=== PATIENT | male | born 1935 | race Caucasian/White ===

== ENCOUNTER 2016-09-14 10:46 | Emergency (ER) | payer MEDICARE ==
--- NOTE | 2016-09-14 11:13 | ERNOTE ---
Lower Extremity HPI - Narrative Date of Service: 09/14/16 - General Lower Extremities Pain: knee: left Time Seen by Provider: 09/14/16 11:00 Source: patient Exam Limitations: no limitations - Immun/Allergies/Home Medications Immunizations: IMMUNIZATION HX Immunizations Up to Date No History of Influenza Vaccine No Hx Pneumococcal Vaccination Yes Allergies/Adverse Reactions: Allergies Allergy/AdvReac Type Severity Reaction Status Date / Time No Known Allergies Allergy Verified 09/14/16 10:54 Home Medications: HOME MEDICATIONS Metoprolol Succinate [Toprol Xl] 25 mg PO DAILY 08/13/13 [Last Taken Unknown] Omega3/Dha/Epa/Fish Oil/Vit D3 [Fish Oil + Vitamin D-3 Softgel] 1 each PO DAILY 08/13/13 [Last Taken Unknown] Tramadol HCl [Ultram] 50 mg PO Q6H PRN 08/13/13 [Last Taken Unknown] Rivaroxaban [Xarelto] 20 mg PO DAILY 06/04/15 [Last Taken Unknown] Calcium Carb&Cit/Mag12/Vit D3 [Calcium 500 mg Tablet] 1 each PO DAILY 02/04/16 [ Last Taken Unknown] Cyanocobalamin (Vitamin B-12) [Vitamin B-12] 500 mcg PO DAILY 02/04/16 [Last Taken Unknown] Furosemide [Lasix] 20 mg PO DAILY 02/04/16 [Last Taken Unknown] Gabapentin 600 mg PO HS 02/04/16 [Last Taken Unknown] Lisinopril [Prinivil] 10 mg PO DAILY 02/04/16 [Last Taken Unknown] Magnesium 250 mg PO TID 02/04/16 [Last Taken Unknown] Tadalafil [Cialis] 5 mg PO DAILY 02/04/16 [Last Taken Unknown] traMADol HCL [Ultram] 50 mg PO QID PRN #20 tab 09/14/16 [Last Taken Unknown] - History of Present Illness Narrative: Pt. comes in with c/o L knee pain that started five days ago after he hit his lower leg on the car door. Pt. reports pain as aching except when he attempts to bear weight on his leg with it straight. Pt. denies any numbness, tingling, CP, SOB, decreased ROM, but does state that he has had to use a cane to support this knee. 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 Review of Systems - Review of Systems Constitutional: Present: no symptoms reported. Absent: fever, chills, weakness , fatigue, malaise EYE: Present: no symptoms reported ENT: Present: no symptoms reported. Absent: nose pain, nose congestion, nasal drainage, sore throat Respiratory: Present: no symptoms reported. Absent: shortness of breath, cough , wheezing Cardiology: Present: no symptoms reported. Absent: chest pain, palpitations, edema Gastrointestinal/Abdominal: Present: no symptoms reported. Absent: nausea, vomiting, diarrhea, abdominal pain Genitourinary: Present: no symptoms reported. Absent: frequency, pain, dysuria Musculoskeletal: Present: joint pain - L lateral knee. Absent: back pain Skin: Present: no symptoms reported Neurological: Present: no symptoms reported. Absent: headache, dizziness/light- headedness, numbness, tingling All Other Systems: All systems neg except as marked - Patient's Past Medical History Patient History - Medical: Chronic Pain, Other Patient History - Cardiac/Respiratory: Atrial Fibrillation Patient History - Cancer: No Hx of Cancer Patient History - Surgical Procedures: Cholecystectomy, Other - Social History Does anyone smoke in the home?: No Smoking Status: Never smoker Have you smoked in the past 12 months: No - Immunizations Immunizations Up to Date: No Hx Pneumococcal Vaccination: Yes History of Influenza Vaccine: No Physical Exam - Physical Exam General Appearance: Present: wd/wn, alert, no apparent distress Eye Exam: Normal inspection: bilateral, PERRL: bilateral, EOMI: bilateral Ears, Nose, Throat: Present: normal ENT inspection, hearing grossly normal, normal pharynx Neck: Present: normal inspection, nontender. Absent: lymphadenopathy (R), lymphadenopathy (L) Respiratory: Present: no respiratory distress, normal breath sounds, no accessory muscle use, chest nontender, lungs clear Cardiovascular/Chest: Present: regular rate, rhythm, no murmur, normal peripheral pulses Gastrointestinal/Abdominal: Present: normal bowel sounds, nontender, nondistended, soft Back Exam: Present: normal inspection, normal range of motion, no CVA tenderness , no vertebral tenderness Extremity Exam: Present: joint swelling - L knee mild, other - L ateral L knee tenderness ant point tenderness L medial patellar tendon. Absent: joint redness Neurological Exam: Present: alert, oriented, normal mood/affect, no motor/ sensory deficits Skin Exam: Present: normal color, warm/dry. Absent: pallor, skin rash ED Progress - Results and Orders Patient's Lab Results:: I have reviewed the patient's lab results. - Vital Signs Patient's Vital Signs:: I have reviewed the patient's vital signs. Vital Signs: Vital Signs 09/14/16 10:51 Temperature 35.1 C L Pulse Rate 56 L Respiratory 16 Rate Blood Pressure 123/78 O2 Sat by Pulse 97 Oximetry - X-Ray X-Ray #1 X-Ray: knee Interpretation: Reviewed by me X-ray Comments: degenerative changes no acute. 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
[2016-09-14 11:19] LABS: Hematocrit 39.1 % (42.0-52.0); Hemoglobin 12.3 gm/dL (13.5-18.0); Mean Cell Volume 91.6 fl (78-100); Mean Corpuscular Hemoglobin 28.8 pg (27-31); Mean Corpuscular Hgb Conc 31.5 g/dl (32-36); Mean Platelet Volume 11.7 fl (6.0-9.5); Neutrophil # 5.2 K/mm3 (1.3-6.0); Neutrophil % 69.7 % (42-75.0); Platelet Count 159 K/mm3 (150-450); Red Blood Count 4.27 M/mm3 (4.7-6.0); Red Cell Distribution Width 16.9 % (11.5-14.0); White Blood Count 7.5 K/mm3 (4.0-10.5)
[2016-09-14 11:29] LABS: Prothrombin Time (Patient) 14.3 Seconds (9.4-11.4)
[2016-09-14 11:32] LABS: Albumin * 2.9 gm/dl (3.4-5.0); Anion Gap 8.5 mmol/L (6.8-13.8); BUN/Creatinine Ratio 18.4 (9.0-21.6); Bilirubin, Total 0.8 mg/dL (0.0-1.1); Calcium * 8.4 mg/dL (7.9-10.9); Carbon Dioxide 29.4 mmol/L (24-32.6); INR 1.38 INR (0.90-1.10); Potassium 3.9 mmol/L (3.4-4.6); Total Protein 6.4 gm/dL (6.2-8.2); Uric Acid 4.1 mg/dL (2.6-7.2)
[2016-09-14 13:27] VITALS: BP 126/64
== END 2016-09-14 12:12 | disposition home or self-care (01) ==
LOC: ER 10:46
DX: M17.5 Other unilateral secondary osteoarthritis of knee (principal); Z90.49 Acquired absence of other specified parts of digestive tract; I48.91 Unspecified atrial fibrillation; Z79.01 Long term (current) use of anticoagulants

== ENCOUNTER 2016-10-12 12:46 | Emergency (ER) | payer MEDICARE ==
[2016-10-12 12:55] VITALS: BP 142/69
[2016-10-12 13:44] LABS: Urine Bilirubin 3 mg/dl (NEGATIVE); Urine Blood 250 /ul (NEGATIVE); Urine Ketone 5 mg/dL (NEGATIVE); Urine Protein >=300 mg/dL (NEGATIVE); Urine Specific Gravity >=1.030 SP.GR. (1.005-1.030); Urine Urobilinogen Normal (NORMAL); Urine pH 6.5 pH (5.0-7.0)
[2016-10-12 13:46] LABS: Urine Nitrite Positive (NEGATIVE)
[2016-10-12 13:47] LABS: Urine Appearance Cloudy; Urine Bacteria 1+; Urine Color Yellow; Urine RBC >50 /hpf (0-5); Urine WBC >50 /hpf (0-5)
[2016-10-12 14:10] LABS: Hematocrit 37.4 % (42.0-52.0); Hemoglobin 12.3 gm/dL (13.5-18.0); Mean Cell Volume 89.9 fl (78-100); Mean Corpuscular Hemoglobin 29.6 pg (27-31); Mean Corpuscular Hgb Conc 32.9 g/dl (32-36); Neutrophil # 13.6 K/mm3 (1.3-6.0); Platelet Count 138 K/mm3 (150-450); Red Blood Count 4.16 M/mm3 (4.7-6.0); Red Cell Distribution Width 17.3 % (11.5-14.0); White Blood Count 15.8 K/mm3 (4.0-10.5)
[2016-10-12 14:16] LABS: Albumin * 2.6 gm/dl (3.4-5.0); Anion Gap 13.5 mmol/L (6.8-13.8); BUN/Creatinine Ratio 10.9 (9.0-21.6); Bilirubin, Total 1.2 mg/dL (0.0-1.1); Ca. Corrected For Albumin 8.8 mg/dL (8.4-10.2); Carbon Dioxide 24.4 mmol/L (24-32.6); Potassium 3.9 mmol/L (3.4-4.6); Total Protein 5.9 gm/dL (6.2-8.2)
--- NOTE | 2016-10-12 15:12 | ERNOTE ---
ER Male HPI Stated Complaint: PEEING BLOOD ER Male: dysuria Time Seen by Provider: 10/12/16 13:30 Source: patient Exam Limitations: no limitations Immunizations: IMMUNIZATION HX Immunizations Up to Date No History of Influenza Vaccine No Hx Pneumococcal Vaccination Yes Allergies/Adverse Reactions: Allergies No Known Allergies Allergy (Verified 10/12/16 12:55) Home Medications: HOME MEDICATIONS Metoprolol Succinate [Toprol Xl] 25 mg PO DAILY 08/13/13 [Last Taken Unknown] Omega3/Dha/Epa/Fish Oil/Vit D3 [Fish Oil + Vitamin D-3 Softgel] 1 each PO DAILY 08/13/13 [Last Taken Unknown] Tramadol HCl [Ultram] 50 mg PO Q6H PRN 08/13/13 [Last Taken Unknown] Rivaroxaban [Xarelto] 20 mg PO DAILY 06/04/15 [Last Taken Unknown] Calcium Carb&Cit/Mag12/Vit D3 [Calcium 500 mg Tablet] 1 each PO DAILY 02/04/16 [ Last Taken Unknown] Cyanocobalamin (Vitamin B-12) [Vitamin B-12] 500 mcg PO DAILY 02/04/16 [Last Taken Unknown] Furosemide [Lasix] 20 mg PO DAILY 02/04/16 [Last Taken Unknown] Gabapentin 600 mg PO HS 02/04/16 [Last Taken Unknown] Lisinopril [Prinivil] 10 mg PO DAILY 02/04/16 [Last Taken Unknown] Magnesium 250 mg PO TID 02/04/16 [Last Taken Unknown] Tadalafil [Cialis] 5 mg PO DAILY 02/04/16 [Last Taken Unknown] Ciprofloxacin HCl [Cipro] 500 mg PO BID #42 tablet 10/12/16 [Last Taken Unknown] - History of Present Illness Timing: Present: getting worse Quality: Present: moderate, aching Onset Location: Present: right flank, left flank Radiation: Present: none Activities at Onset: Present: none Prior Abdominal Problems: Present: none Associated Symptoms: Present: fever/chills, urinary frequency, polyuria, loss of bladder control, low back pain Review of Systems - Narrative Narrative: Patient presented to ER with c/o urinary frequency, low back pain and dark/ bloody urine. - Review of Systems Constitutional: Present: no symptoms reported EYE: Present: no symptoms reported ENT: Present: no symptoms reported Respiratory: Present: no symptoms reported Cardiology: Present: no symptoms reported Gastrointestinal/Abdominal: Present: no symptoms reported Genitourinary: Present: See HPI, frequency, pain, dysuria, hematuria, decreased urinary output Musculoskeletal: Present: back pain - low back pain that started 2 days ago - Patient's Past Medical History Patient History - Medical: Chronic Pain, UTI'S, Other Patient History - Cardiac/Respiratory: Atrial Fibrillation, Hypertension Patient History - Cancer: No Hx of Cancer Patient History - Surgical Procedures: Cholecystectomy, Other - Social History Does anyone smoke in the home?: No - Immunizations Immunizations Up to Date: No Hx Pneumococcal Vaccination: Yes History of Influenza Vaccine: No Physical Exam - Physical Exam General Appearance: Present: wd/wn, alert, no apparent distress Eye Exam: Normal inspection: bilateral Ears, Nose, Throat: Present: normal ENT inspection Neck: Present: normal inspection Respiratory: Present: no respiratory distress Cardiovascular/Chest: Present: normal peripheral pulses, irregularly irregular - hx of afib Peripheral Pulses: N=norm/S=strong/W=weak/B=bound/A=absent: Radial (R): Normal, Radial (L): Normal Gastrointestinal/Abdominal: Present: normal bowel sounds, nontender, nondistended Back Exam: Present: CVA tenderness (R), CVA tenderness (L) Extremity Exam: Present: normal inspection, non-tender, normal range of motion Neurological Exam: Present: alert, oriented, normal mood/affect Skin Exam: Present: normal color Lymphatic Exam: Present: no adenopathy ED Progress - Results and Orders Patient's Lab Results:: I have reviewed the patient's lab results. - Vital Signs Patient's Vital Signs:: I have reviewed the patient's vital signs. Vital Signs: Vital Signs 10/12/16 12:51 Temperature 36.4 C L Pulse Rate 79 Respiratory 14 Rate Blood Pressure 142/69 O2 Sat by Pulse 96 Oximetry - Progress/Reassessment Chief Complaint: Genitourinary Problem Progress:: Improved Plan - Plan Plan: Patient is to continue his home medications and written prescription. Continue to drink plenty of fluids. Departure Clinical Impression: Urinary tract infection - Departure Disposition: Home self-care Condition: Good Instructions: Urinary Tract Infection, Adult, [id number] Additional Instructions: Start your oral antibiotics today. Continue current home medications, encourage fluids. Please return if symptoms continue or worsen. Follow up with primary care doctor for urine check after antibiotics are completed. Referrals: Qian Davila, PAYAL [Primary Care Provider] - Prescriptions: Ciprofloxacin HCl [Cipro] 500 mg PO BID #42 tablet
--- OUTSIDE RECORDS SUMMARY | 2016-10-12 16:27 | XMS REPORT | Continuity of Care Document ---
:1935 Author Organization [facility] ([facility] [place]) Address [address] [place] [address] Phone [phone] Care Team Providers Name Role Phone EffieCely cisnerosgy Primary Care Provider [phone] Source Comments This disclosure is being made pursuant to the Care Everywhere program, applicable federal and state laws, and may not contain all informaitonavailable regarding this patient.[facility] ([facility] [place]) Active Allergies and Adverse Reactions Allergen Noted Date Severity Reactions Comments Acetaminophen 05/19/2016 Nausea & Vomiting Current Medications Prescription Sig. Disp. Refills Start Date End Date Status lisinopril 10 mg tablet Take 10 mg by Active mouth daily metoPROLol succinate 25 mg Take 25 mg by Active XL tablet mouth daily OMEGA3/DHA/EPA/FISH Active OIL/VIT D3 (FISH OIL-VIT D3 PO) traMADol 50 mg tablet Take 100 mg by Active mouth 2 times daily as needed cyanocobalamin (NASCOBAL) Use 500 mcg into Active 500 mcg nasal spray one nostril every week CIALIS 5 mg tablet Take 5 mg by 10/21/2015 Active mouth. XARELTO 20 mg tablet Take 20 mg by 10/25/2015 Active mouth daily. NEURONTIN 300 mg capsule 600 mg every 10/21/2015 Active evening. diphenoxylate-atropine Take 1 tablet by Active 2.5-0.025 mg per tablet mouth 4 times daily as needed. furosemide 20 mg tablet Take 20 mg by Active mouth as needed. 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 05/20/2016 Chronic atrial fibrillation 03/04/2015 Morbid obesity 03/04/2015 Cardiomyopathy in other diseases classified elsewhere 03/04/2015 SHALINI (obstructive sleep apnea) 03/04/2015 Extreme obesity 02/26/2014 Most Recent Encounters Date Type Specialty Providers Description 09/22/2016 Office Visit [facility] Ophthalmology Jimy Herron MD Chief Comp : Patient Reported Reason For Visit 09/14/2016 Telephone [facility] Ophthalmology Jimy Herron MD Chief Comp: Appointment Info 08/31/2016 Office Visit Heart and Vascular Jonathan Cowart MD Dx: Chronic atrial fibrillation (Primary Dx) Social History Tobacco Use Types Packs/Day Years Used Date Never Smoker Alcohol Use Drinks/Week oz/Week Comments No Last Filed Vital Signs Vital Sign Reading Time Taken Blood Pressure 128/84 08/31/2016 2:55 PM EXPORT COORDINATOR Pulse 60 08/31/2016 2:55 PM EXPORT COORDINATOR Temperature 36.4 C (97.5 F) 05/19/2016 3:24 PM CDT Respiratory Rate - - Height 1.778 m (5' 10") 08/31/2016 2:55 PM EXPORT COORDINATOR Weight 124.739 kg (275 lb) 08/31/2016 2:55 PM EXPORT COORDINATOR Body Mass Index 39.46 08/31/2016 2:55 PM EXPORT COORDINATOR Oxygen Saturation 98% 05/19/2016 3:24 PM CDT Plan of Care Date Type Specialty Providers Description 03/29/2017 Appointment Heart and Vascular Jonathan Cowart MD [address] [place] [address] [phone] (Fax) Chief Comp: Patient Rosemary Rodriguez MONICA Finney [address] [place] [address] [phone] (Fax) Reported Reason For Visit Health Maintenance Due Date Last Done Comments Hepatitis B Vaccine (1 of 3 - Primary Series) 1935 Tdap Vaccine 02/14/1946 Lipid Disorder Screening 1953 Td Vaccine 1953 Colonoscopy 1987 Zoster Vaccine 1997 Pneumococcal Vaccine (1 of 2 - PCV13) 2002 Influenza Vaccine: Seasonal (#1) 03/15/2016 Results from Last 3 Months Not on file
== END 2016-10-12 15:27 | disposition home or self-care (01) ==
LOC: ER 12:46
DX: N39.0 Urinary tract infection, site not specified (principal); I48.91 Unspecified atrial fibrillation; Z79.01 Long term (current) use of anticoagulants; I10 Essential (primary) hypertension; Z87.440 Personal history of urinary (tract) infections

== ENCOUNTER 2017-10-31 06:39 | Inpatient (IN) | payer MEDICARE ==
[~2017-10-31 06:39] MED LIST: MORPHINE SULFATE 15 MG TABLET.SA PO PRN; ROPIVACAINE HCL/PF 100 MG, KETOROLAC TROMETHAMINE 30 MG, EPINEPHrine 0.2 MG in NORMAL S... IJ PRN; TRANEXAMIC ACID 1,000 MG in NORMAL SALINE 100 ML IV PRN; ceFAZolin SODIUM 1 GM VIAL IV PRN
[2017-10-31] MEDS: RINGER'S SOLUTION,LACTATED 1,000 ML IV PRN ×2 (07:42→07:45)
[2017-10-31] MEDS ORDERED: RINGER'S SOLUTION,LACTATED 1,000 ML IV ONE (09:00)
--- NOTE | 2017-10-31 09:45 | POSTOP NO ---
Date of Surgery: 10/31/17 Patient Tolerated the Procedure: Well Post Operative Diagnosis/Procedures: Client Relationship Executive: Jun Finley PA-C Post-operative Diagnosis: Left knee degenerative joint disease Finding: Above Procedure: Left total knee arthroplasty Estimated Blood Loss: Minimal Specimens: Bone for disposal
[2017-10-31] MEDS ORDERED: ONDANSETRON HCL/PF 2 MG/ML VIAL IV PRN (09:47)
[2017-10-31] MEDS ORDERED: diphenhydrAMINE HCL 50 MG/ML VIAL IV PRN (09:47)
[2017-10-31] MEDS ORDERED: MAG HYDROX/ALUMINUM HYD/SIMETH 30 ML UDC PO PRN (09:47)
[2017-10-31] MEDS ORDERED: ZOLPIDEM TARTRATE 5 MG TABLET PO PRN (09:47)
[2017-10-31] MEDS ORDERED: PROMETHAZINE HCL 5 MG in DEXTROSE 5 % IN WATER 50 ML IV PRN ×2 (09:47)
[2017-10-31] MEDS ORDERED: MAGNESIUM HYDROXIDE 30 ML UDC PO PRN (09:47)
--- NOTE | 2017-10-31 09:47 | OR ---
Operative Report - Dictated Report Narrative: Date: 10/31/2017 Preoperative diagnosis: Left Knee degenerative joint disease. Postoperative diagnosis: Left Knee degenerative joint disease. Procedure: Left Total knee arthroplasty. Surgeon: Jose R Cisneros M.D. Stone Rigger: Jun Finley PA-C Anesthesia: General with local periarticular joint injection. Complications: None Specimens: Bone for disposal. Estimated blood loss: Minimal. Tourniquet time: 80 Minutes at 325 millimeters of mercury. Retained implants: Depuy Attune size 7 left lugged cemented posterior stabilized femoral component. Size 7 fixed-bearing cemented tibial platform. 7 by 7 millimeter posterior stabilized cross-linked tibial insert. 41 millimeter medialized patella button. Indications: Mr. Pozo is a 82-year-old gentleman who has had long standing left knee pain and arthrosis. This patient was followed in my clinic for period of time with significant complaints of left knee pain consistent with arthritic changes. He had failed conservative measures including, but not limited to, activity modification, passage of time, medications, and other conservative measures. Patient wished to proceed with surgical treatment. The risks, benefits, and alternatives were discussed in clinic. The risks of , blood clots, bleeding, infection, nerve/tendon blood vessel/ injury, malposition of components, intraoperative fracture, postoperative limited range of motion, persistent pain, failure of components, and need for additional procedures. Patient wished to proceed consent was obtained after answering all questions. Procedure: After marking the correct extremity on the floor, the patient was taken to the operating room. A timeout was performed. IV antibiotics consisting of Ancef were administered prior to the procedure. A general anesthetic was induced by anesthesia, per my request, on the operative table with all bony prominences well-padded. Cuadra catheter was placed, and a bump was placed under the operative side buttock. SCDs and CASIMIRO hose were utilized on the nonoperative leg. A well-padded tourniquet was applied to the operative thigh. The operative leg was then pre-scrubbed with ericka perez prepped, and draped in a standard sterile fashion. After exsanguinating the extremity with an Esmarch bandage, the tourniquet was inflated. After marking out the anterior knee for standard incision centered over the patella, the skin was incised and dissected down to the joint retinaculum. The joint retinaculum was marked out as well as the horizontal axis of the patella, and a standard medial parapatellar arthrotomy was then made. The most proximal aspect of the quadriceps tendon and the patella tendon insertion were protected from release. A partial synovectomy was performed as well as a resection of the infrapatellar fat pad. The distal femoral fat pad proximal to the trochlea was also resected using cautery. The soft tissues were elevated off the medial aspect of the proximal tibia using a Luna elevator ensuring that we did not transect the medial collateral ligament. Upon initial evaluation range of motion was approximately 0 degrees to 130 degrees of flexion. There were signs of advanced arthrosis in the medial and patellofemoral joint spaces. There were large marginal osteophytes which were removed with a rongeur. The knee was hyperflexed and the patella was tucked laterally. Protecting the surrounding soft tissues with Homans, an entry drill was placed down the femoral canal using Whitesides line for guidance into the entry point. The intramedullary femoral alignment juany was utilized in order to cut the distal femur in 5 degrees of valgus resecting 10 millimeters of bone. Next the distal femur was sized to a size 7. A posterior referencing guide was utilized to place the distal femoral cutting block in 3 degrees of external rotation. This was pinned into place. The rotation was confirmed both visually and based on anatomic landmarks. The 4 in 1 cutting jig of the appropriate size was utilized in order to make all bony cuts. The angle wing was used to ensure no notching. Retractors were utilized in order to protect surrounding soft tissues. This cut did not result in any excessive notching. We then cut the box centered over the distal femur. This allowed for resection of the anterior and posterior cruciate ligaments. I then turned my attention to the preparation of the tibia. Using an extra medullary tibial alignment juany, 3 millimeters of bone was resected off the medial articular surface. This was made perpendicular to the mechanical axis of the joint with the alignment juany centered over the ankle mortise. The alignment juany was checked and was noted to be parallel to the mechanical axis, centered over the medial one third of the tibial tubercle, paralleling the anterior surface of the tibia. We then turned our attention to the remaining meniscus and soft tissues. These were removed while protecting the surrounding ligaments and soft tissues. The marginal osteophytes off the anterior, posterior, medial, lateral aspects of the femur and tibia were removed. The tibia was sized out to a size 7. Next the tibia was drilled and punched in an externally rotated position. Next the trial femur and a series of tibial inserts were utilized in order to allow for full extension and maximal flexion. It was found that a 7 millimeter insert gave the best range of motion and stability at multiple flexion points as well as at full extension there was less than 2 mm of gapping both medially and laterally. There is minimal anterior translation with the knee at 90 degrees of flexion and no signs of being able to dislocate the knee. The patella was then prepared. The initial thickness was 26 millimeters. This was reamed down to 15 millimeters parallel to the anterior surface of the patella. It was sized out to a size 41 medialized patella button. This was then drilled and trialed. Without any medial restraint the patella tracked appropriately and did not sublux or dislocate. At this point, it was felt these were the appropriate sized implants, and all trials were removed. The standard periarticular joint injection consisting of ropivacaine, Toradol, and epinephrine were injected into the periarticular joint tissues. The bony surfaces were thoroughly irrigated with a pulsatile- suction saline irrigation device. A bone plug from the prior resected anterior chamfer cut was placed into the drill hole at the distal femur. The bony surfaces were then dried in preparation for placement of the implants. The cement was vacuum mixed per the diesel dinkey operator's instructions. The cement was placed on the dry bony surfaces and posterior aspect of the implants. The implants were impacted into place, removing all extruded cement. At this point anesthesia administered tranexamic acid per protocol intravenously. The knee was placed in extension with axial loading with the trial insert while the cement cured. Once the cement cured, all remaining extruded cement was removed. The knee was placed through a range of motion with the trial insert to ensure appropriate range of motion and stability. Final range of motion was approximately 0 to 130 degrees. The knee was again thoroughly irrigated with pulsatile saline lavage. The final polyethylene insert was then impacted into place ensuring no retained soft tissues. The remaining periarticular joint injection was injected. A medium Hemovac drain was placed exiting superior laterally. The knee was then placed over a triangle and the arthrotomy was closed with interrupted #1 Vicryl after thoroughly irrigating the joint. The deep and subcutaneous tissues were closed with interrupted 0 and 3-0 Vicryl respectively. Skin was closed with a running subcutaneous 3-0 Monocryl and Prineo Dermabond dressing. 4 x 4's, Sof-Rol, and a full leg Rajeev wrap were applied. All sponge, needle, blade, and instrument counts were correct prior to closing the wounds. Postoperative condition: The patient was awoken and transferred to the postanesthesia care unit in stable condition. Plan is to be admitted to the inpatient medical/surgical floor postoperatively for 24 hours of IV antibiotics , physical therapy, occupational therapy, and medical comanagement. Patient will be weightbearing as tolerated with range of motion as tolerated. DVT prophylaxis will be with SCDs, CASIMIRO hose, and pharmacological anticoagulation. Anticipated hospital stay is approximately 1-3 days.
[2017-10-31] MEDS ORDERED: DIPHENOXYLATE HCL/ATROP SULF 2.5 MG TABLET PO PRN (09:49)
[2017-10-31] MEDS: KETOROLAC TROMETHAMINE 15 MG/ML VIAL IV SCH ×3 (11:00→23:01)
[2017-10-31] MEDS: HYDROmorphone HCL 2 MG/ML VIAL IV PRN ×2 (11:02→13:48)
[2017-10-31] MEDS: GABAPENTIN 300 MG CAPSULE PO SCH ×2 (12:09→20:36)
[2017-10-31] MEDS: DEXTROSE 5%-LACTATED RINGERS 1,000 ML IV PRN ×2 (13:08→21:39)
[2017-10-31] MEDS: MAGNESIUM OXIDE 400 MG TABLET PO SCH ×2 (13:44→16:59)
[2017-10-31] MEDS: CALCIUM CARBONATE 500 MG TAB.CHEW PO SCH ×2 (13:44→16:59)
[2017-10-31] MEDS: ceFAZolin SODIUM 1 GM in DEXTROSE 5 % IN WATER 50 ML IV SCH ×4 (14:37→19:52)
[2017-10-31] MEDS: tiZANidine HCL 4 MG TABLET PO SCH ×2 (14:37→20:34)
[2017-10-31] MEDS ORDERED: NORMAL SALINE 500 ML IV PRN (18:21)
[2017-10-31] MEDS: SENNOSIDES/DOCUSATE SODIUM 1 TAB TABLET PO SCH (20:33)
[2017-10-31] MEDS: MORPHINE SULFATE 15 MG TABLET.SA PO SCH (22:59)
[2017-11-01] MEDS: ceFAZolin SODIUM 1 GM in DEXTROSE 5 % IN WATER 50 ML IV SCH ×2 (02:07)
[2017-11-01] MEDS: HYDROmorphone HCL 2 MG/ML VIAL IV PRN (02:15)
[2017-11-01] MEDS: KETOROLAC TROMETHAMINE 15 MG/ML VIAL IV SCH ×4 (05:18→22:56)
[2017-11-01 06:26] LABS: Hematocrit 35.2 % (42.0-52.0); Hemoglobin 11.9 gm/dL (13.5-18.0); Mean Cell Volume 98.3 fl (78-100); Mean Corpuscular Hemoglobin 33.2 pg (27-31); Mean Corpuscular Hgb Conc 33.8 g/dl (32-36); Mean Platelet Volume 12.6 fl (6.0-9.5); Platelet Count 133 K/mm3 (150-450); Red Blood Count 3.58 M/mm3 (4.7-6.0); Red Cell Distribution Width 12.7 % (11.5-14.0); White Blood Count 6.9 K/mm3 (4.0-10.5)
[2017-11-01 06:36] LABS: Anion Gap 9.6 mmol/L (6.8-13.8); BUN/Creatinine Ratio 12.6 (9.0-21.6); Calcium * 8.1 mg/dL (7.9-10.9); Carbon Dioxide 27.3 mmol/L (24-32.6); Estimated Creat Clear 48.1; Potassium 4.9 mmol/L (3.4-4.6)
[2017-11-01] MEDS: DEXTROSE 5%-LACTATED RINGERS 1,000 ML IV PRN (06:49)
[2017-11-01] MEDS: tiZANidine HCL 4 MG TABLET PO SCH ×3 (06:50→22:57)
[2017-11-01] MEDS: oxyCODONE HCL 5 MG TABLET PO PRN ×2 (07:03→17:47)
--- NOTE | 2017-11-01 08:14 | PN ---
Subjective - Date and Time Seen Date: 11/01/17 Time: 08:09 Subjective Narrative: Patient reports he just got up to a chair this morning for breakfast. Has not ambulated yet. Reports pain doing well this am. No nausea. Was able to eat some. Did get his catheter out this am. No complaints. Objective Objective Narrative: Bandages C/D/I LLE. Calf supple. Rafael's negative. N/V intact. 5/5 PF/DF ankle. - Vitals Vitals: Last Vital Signs Temp 36.0 C L 11/01/17 00:30 Pulse 62 11/01/17 00:30 Resp 18 11/01/17 00:30 BP 87/52 11/01/17 00:30 Pulse Ox 98 11/01/17 00:30 - Abnormal Lab Findings Abnormal Lab Findings: Abnormal Lab Results 11/01/17 11/01/17 Range/Units 06:17 06:17 RBC 3.58 L (4.7-6.0) M/mm3 Hgb 11.9 L (13.5-18.0) gm/dL Hct 35.2 L (42.0-52.0) % MCH 33.2 H (27-31) pg Plt Count 133 L (150-450) K/mm3 MPV 12.6 H (6.0-9.5) fl Potassium 4.9 H D (3.4-4.6) mmol/L Random Glucose 114 H (70-110) mg/dL - Exam Constitutional: Present: Alert, Oriented x3, Cooperative, No distress Cauti Physician Documentation - Urinary Catheter Management Urethral (Cuadra) Date of Insertion: 10/31/17 Time of Insertion: 07:50 Date of Removal: 11/01/17 Time of Removal: 07:05 Assessment/Plan - Problems/Diagnosis (1) Status post total left knee replacement Problem: Acute Narrative: PT, pain control, anticoagulation, patient will need wheeled walker for 6-8 weeks post op (2) Atrial fibrillation Problem: Chronic (3) Acute blood loss anemia Problem: Acute Narrative: observation (4) Hyperkalemia Problem: Acute Narrative: increase oral fluid intake (5) Osteoarthritis Problem: Acute
[2017-11-01] MEDS: MORPHINE SULFATE 15 MG TABLET.SA PO SCH ×2 (09:55→23:12)
[2017-11-01] MEDS: FUROSEMIDE 20 MG TABLET PO SCH (09:56)
[2017-11-01] MEDS: MAGNESIUM OXIDE 400 MG TABLET PO SCH ×3 (09:58→17:47)
[2017-11-01] MEDS: TADALAFIL 5 MG TABLET PO SCH (09:59)
[2017-11-01] MEDS: OMEGA-3 FATTY ACIDS 1 CAP CAPSULE PO SCH (10:00)
[2017-11-01] MEDS: METOPROLOL SUCCINATE 25 MG TABLET.SA PO SCH (10:00)
[2017-11-01] MEDS: RIVAROXABAN 20 MG TABLET PO SCH (10:01)
[2017-11-01] MEDS: CALCIUM CARBONATE 500 MG TAB.CHEW PO SCH ×3 (10:01→17:47)
[2017-11-01] MEDS: GABAPENTIN 300 MG CAPSULE PO SCH (22:56)
[2017-11-01] MEDS: SENNOSIDES/DOCUSATE SODIUM 1 TAB TABLET PO SCH (22:57)
[2017-11-02] MEDS: KETOROLAC TROMETHAMINE 15 MG/ML VIAL IV SCH (04:33)
[2017-11-02] MEDS: tiZANidine HCL 4 MG TABLET PO SCH (07:56)
[2017-11-02 09:38] VITALS: BP 88/56
[2017-11-02] MEDS: MORPHINE SULFATE 15 MG TABLET.SA PO SCH (09:57)
[2017-11-02] MEDS: TADALAFIL 5 MG TABLET PO SCH (10:22)
[2017-11-02] MEDS: FUROSEMIDE 20 MG TABLET PO SCH (10:23)
[2017-11-02] MEDS: MAGNESIUM OXIDE 400 MG TABLET PO SCH (10:24)
[2017-11-02] MEDS: OMEGA-3 FATTY ACIDS 1 CAP CAPSULE PO SCH (10:25)
[2017-11-02] MEDS: METOPROLOL SUCCINATE 25 MG TABLET.SA PO SCH (10:25)
[2017-11-02] MEDS: CALCIUM CARBONATE 500 MG TAB.CHEW PO SCH (10:26)
[2017-11-02] MEDS: RIVAROXABAN 20 MG TABLET PO SCH (10:27)
--- NOTE | 2017-11-02 10:46 | DS ---
(1) Status post total left knee replacement Problem: Acute (2) Atrial fibrillation Problem: Chronic (3) Acute blood loss anemia Problem: Acute (4) Hyperkalemia Problem: Acute (5) Osteoarthritis Problem: Acute Description of Stay: Mr. Pozo was admitted to the floor after undergoing left total knee arthroplasty. Tolerated this well. Was admitted to the floor postoperatively for 24 hours of IV antibiotics, pain control, medical comanagement, and occupational and physical therapy. OT and PT were consulted to assist with activities of daily living and ambulation. Was made weightbearing as tolerated with range of motion as tolerated. Pain was initially controlled with IV regimen. This was transitioned to oral once tolerating a by mouth intake. Was resumed on home diet and medications. Had a Cuadra catheter inserted and the operating room which was discontinued on postoperative day 1. A drain was placed intraoperatively into the knee which was discontinued on postoperative day 1. Xarelto CASIMIRO hose were utilized for DVT prophylaxis. Vital signs remained stable to the hospital course. Serial labs were obtained which showed a final hemoglobin of 11.9 grams. BMP was reviewed and was stable. Physical examination throughout the hospital course showed an extremity that had sensation that was intact to light touch, palpable pulses, a benign wound, motor intact to the toes, ankle, and knee. Knee range of motion was approximately 5 degrees to 70 degrees. Once an oral pain regimen was tolerated and physical therapy goals were met, it was felt that they were stable for discharge to home. Instructions: Continue with weightbearing as tolerated and range of motion as tolerated. It is OK to shower on the wound if it is not draining. If you note any drainage or for comfort you can cover with dry gauze and tape. Change every 2-3 days as needed. Continue with physical therapy. Resume home diet. He will continue his maintenance dose of Xarelto. Report any fever over 101.5 Fahrenheit, uncontrolled pain, increased drainage, foul odor of drainage, new or increased calf pain or shortness of breath, or any other significant complaints. Continue with CASIMIRO hose on the operative extremity until instructed otherwise. No driving until instructed otherwise. Follow up in approximately 10-14 days. Procedures Performed: see notes below List Procedures: Left total knee arthroplasty Discharge Location: Home Disposition: Home self-care Condition: Good Discharge Activity: Activity as tolerated, Weight bearing, Other - with walker Discharge Diet: Low salt Mcfp Therapy: Physicial Therapy Referrals: Rakesh Rubio MD [Primary Care Provider] - Additional Patient Instructions (free text): Outpatient Physical Therapy at [facility] on Tuesday at 1:30 pm. Follow up Orthopedic appt. with Dr. Cisneros Wednesday 11/22 at 9:45am. Prescriptions (Any new or edited meds): Morphine Sulfate [Ms Contin] 15 mg PO Q12H #20 tablet.sa oxyCODONE HCL [Oxycodone] 10 mg PO Q4H PRN #90 tablet PRN Reason: Severe Pain (Pain Scale 7-10) Sennosides/Docusate Sodium [Senokot-S] 2 tab PO HS #20 tablet Complete Home Medications List: Complete Home Medication List: Metoprolol Succinate [Toprol Xl] 25 mg PO DAILY 08/13/13 Omega3/Dha/Epa/Fish Oil/Vit D3 [Fish Oil + Vitamin D-3 Softgel] 1 each PO DAILY 08/13/13 traMADol HCL [Ultram] 100 mg PO Q6H PRN 08/13/13 Rivaroxaban [Xarelto] 20 mg PO DAILY 06/04/15 Furosemide [Lasix] 20 mg PO DAILY 02/04/16 Gabapentin 600 mg PO HS 02/04/16 Magnesium 250 mg PO TID 02/04/16 Tadalafil [Cialis] 5 mg PO DAILY 02/04/16 Calcium Carbonate [[id number]] 500 mg PO TID 10/27/17 Cyanocobalamin (Vitamin B-12) [Nascobal] 1 spray NS Q7D 10/27/17 Diphenoxylate HCl/Atropine [Lomotil 2.5-0.025 mg Tablet] 1 each PO PRN PRN 10/27 tiZANidine HCL [Zanaflex] 2 mg PO TID 10/27/17 Morphine Sulfate [Ms Contin] 15 mg PO Q12H #20 tablet.sa 11/02/17 Sennosides/Docusate Sodium [Senokot-S] 2 tab PO HS #20 tablet 11/02/17 oxyCODONE HCL [Oxycodone] 10 mg PO Q4H PRN #90 tablet 11/02/17
== END 2017-11-02 13:35 | disposition home or self-care (01) | DRG 470 ==
LOC: MS 06:39 → EDSTATUS 08:00
PROVIDERS: ADMIT Orthopaedic Surgery; ATTEND Orthopaedic Surgery
PROC: 0SRD0J9 Replacement of Left Knee Joint with Synthetic Substitute, Cemented, Open Approach (ICD-10-PCS; principal; 2017-10-31)
DX: M17.12 Unilateral primary osteoarthritis, left knee (principal); D62 Acute posthemorrhagic anemia; E87.5 Hyperkalemia; I10 Essential (primary) hypertension; I48.2 Chronic atrial fibrillation; Z79.01 Long term (current) use of anticoagulants

== ENCOUNTER 2020-03-07 14:20 | Observation (INO) ==
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
[2020-03-07 15:05] LABS: Hematocrit 42.7 % (42.0-52.0); Hemoglobin 13.9 gm/dL (13.5-18.0); Mean Cell Volume 101.7 fl (78-100); Mean Corpuscular Hemoglobin 33.1 pg (27-31); Mean Corpuscular Hgb Conc 32.6 g/dl (32-36); Mean Platelet Volume 12.2 fl (8-11.3); Neutrophil # 9.1 K/mm3 (1.3-6.0); Neutrophil % 85.9 % (42-75.0); Platelet Count 130 K/mm3 (150-450); Red Cell Distribution Width 13.3 % (11.5-14.0); White Blood Count 10.6 K/mm3 (4.0-10.5)
[2020-03-07 15:18] LABS: Albumin * 2.7 gm/dl (3.4-5.0); Anion Gap 11.8 mmol/L (6.8-13.8); Ca. Corrected For Albumin 9.3 mg/dL (8.4-10.2); Calcium * 8.6 mg/dL (7.9-10.9); Carbon Dioxide 29.4 mmol/L (24-32.6); Potassium 4.2 mmol/L (3.4-4.6); Total Protein 6.2 gm/dL (6.2-8.2)
[2020-03-07] MEDS ORDERED: MORPHINE SULFATE 2 MG/ML DISP.SYRIN IV ONE (15:59)
[2020-03-07] MEDS ORDERED: DIPHENOXYLATE HCL/ATROP SULF 2.5 MG TABLET PO PRN (18:19)
[2020-03-07] MEDS ORDERED: FUROSEMIDE 20 MG TABLET PO PRN (18:19)
[2020-03-07] MEDS ORDERED: LIDOCAINE 1 PATCH ADH..PATCH TP PRN (18:19)
[2020-03-07] MEDS ORDERED: hydrOXYzine HCL 25 MG TABLET PO PRN (18:21)
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
[2020-03-07] MEDS: MORPHINE SULFATE 2 MG/ML DISP.SYRIN IV PRN (19:15)
[2020-03-07] MEDS: GABAPENTIN 300 MG CAPSULE PO SCH (20:45)
[2020-03-07] MEDS: MOMETASONE FUROATE 120 SPRAY INHALER NS SCH (20:46)
[2020-03-08] MEDS: MORPHINE SULFATE 2 MG/ML DISP.SYRIN IV PRN ×2 (04:22→10:31)
[2020-03-08] MEDS ORDERED: GABAPENTIN 100 MG CAPSULE PO SCH (07:00)
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
[2020-03-08] MEDS: RIVAROXABAN 20 MG TABLET PO SCH (08:51)
[2020-03-08] MEDS: MOMETASONE FUROATE 120 SPRAY INHALER NS SCH (20:01)
[2020-03-08] MEDS: GABAPENTIN 300 MG CAPSULE PO SCH (20:02)
[2020-03-09] MEDS: MORPHINE SULFATE 2 MG/ML DISP.SYRIN IV PRN (02:18)
[2020-03-09] MEDS: RIVAROXABAN 20 MG TABLET PO SCH (08:42)
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
[2020-03-09] MEDS: MOMETASONE FUROATE 120 SPRAY INHALER NS SCH (21:04)
[2020-03-09] MEDS: GABAPENTIN 300 MG CAPSULE PO SCH (21:04)
[2020-03-10] MEDS: MORPHINE SULFATE 2 MG/ML DISP.SYRIN IV PRN (06:34)
[2020-03-10] MEDS: RIVAROXABAN 20 MG TABLET PO SCH (08:34)
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
[2020-03-10 17:22] VITALS: BP 130/73
== END 2020-03-10 18:05 | disposition home or self-care (01) ==
LOC: MS 14:20 → ER 14:20 → MS 17:30
PROVIDERS: ADMIT Family Medicine; ATTEND Allergy & Immunology
DX: I50.9 Heart failure, unspecified; S20.219A Contusion of unspecified front wall of thorax, initial encounter; G89.29 Other chronic pain; S22.32XA Fracture of one rib, left side, initial encounter for closed fracture; I48.91 Unspecified atrial fibrillation; Y92.413 State road as the place of occurrence of the external cause; M25.562 Pain in left knee; S51.012A Laceration without foreign body of left elbow, initial encounter; F11.90 Opioid use, unspecified, uncomplicated; V49.88XA Car occupant (driver) (passenger) injured in other specified transport accidents, initial encounter; Z79.01 Long term (current) use of anticoagulants; M25.561 Pain in right knee
CPT/HCPCS: 36415; 71260; 72125; 73030; 73562; 74177; 80053; 85025; 96374; 96376; 97110; 97116; 97162; 97530; 99285; G0378; Q9967